=== PATIENT | female | born 1955 | race Caucasian/White ===

== ENCOUNTER → 2018-05-17 14:56 | Outpatient (CLI) | payer MEDICARE, OTHER, SELFPAY ==
--- NOTE | 2018-05-17 | DI.RAD.S_ITS ---
This blank DEXA report has been sent in error by the PACS system. The correct and complete report will be forthcoming in 1-2 days. Thank you for your patience and understanding. Dictated by: Victorina Jacobo MD, PhD on 05/17/2018 at 15:32 Approved by: Victorina Jacobo MD, PhD on 05/17/2018 at 15:32
== END ==
PROVIDERS: Visit Provider Family Medicine
DX: M85.852 Other specified disorders of bone density and structure, left thigh (principal); Z78.0 Asymptomatic menopausal state; E11.9 Type 2 diabetes mellitus without complications
CPT/HCPCS: 77080

== ENCOUNTER → 2023-03-16 14:56 | Outpatient (CLI) | payer MEDICARE, OTHER, SELFPAY ==
--- NOTE | 2023-03-16 | DI.RAD.S_ITS ---
PROCEDURE: XR WRIST LT MIN 3V INDICATIONS: Wrist pain after fall TECHNIQUE: 4 views of the wrist were acquired. COMPARISON: None. FINDINGS: Bones: 1st carpometacarpal joint space narrowing with marginal osteophyte. Normal bone mineralization. No evidence of fracture. Soft tissues: No suspicious soft tissue calcifications. IMPRESSION: Osteoarthritis. No fracture Approved by: Miquel Molina M.D. on 03/16/2023 at 19:28
--- NOTE | 2023-03-16 | DI.RAD.S_ITS ---
PROCEDURE: XR HAND LT 2V INDICATIONS: Wrist pain after fall TECHNIQUE: Three views of the hand acquired. COMPARISON: None. FINDINGS: Bones: No acute fractures or dislocations. Carpal bones are normally aligned. No suspicious bony lesions. Severe degenerative changes at the 1st carpometacarpal joint. Multifocal degenerative changes in the interphalangeal joints of the fingers, most notably at the third distal interphalangeal joint. Bones are osteopenic. Soft tissues: No suspicious soft tissue calcifications. IMPRESSION: 1. No acute osseous abnormality. If clinical suspicion and/or symptoms persist, additional imaging with repeat plain films, or advanced imaging (e.g. CT, MRI) may be helpful for further assessment. 2. Background osteoarthrosis, most notably at the 1st carpometacarpal joint and 3rd distal interphalangeal joint. Approved by: Garett Covington M.D. on 03/16/2023 at 21:20
== END ==
PROVIDERS: PCP Family Medicine; Referring Provider Family Medicine; Visit Provider Family Medicine
DX: M18.12 Unilateral primary osteoarthritis of first carpometacarpal joint, left hand (principal); M19.042 Primary osteoarthritis, left hand; M25.532 Pain in left wrist; M79.642 Pain in left hand
CPT/HCPCS: 73110; 73120

== ENCOUNTER → 2023-12-01 14:15 | Outpatient (CLI) | payer MEDICARE, OTHER, SELFPAY ==
--- NOTE | 2023-12-01 14:18 | DI.RAD.S_ITS ---
PROCEDURE: XR HIP W PEL IF DONE LT 2V INDICATIONS: HIP PAIN TECHNIQUE: AP pelvis with lateral view(s) of the left hip(s). COMPARISON: [facility], CR, XR PELVIS W BILATERAL HIPS 5VW, 02/27/2017, 17:17. FINDINGS: Bones: Severe left hip DJD, progressed compared to 2017. This is demonstrable by joint space narrowing acetabular roof sclerosis and osteophytosis. Moderate right hip DJD. No fractures or dislocations. Pelvic ring appears intact. No suspicious bony lesions. Lumbar spine degenerative changes. Soft tissues: The visualized bowel gas pattern is normal. No suspicious soft tissue calcifications. IMPRESSION: Severe left hip DJD. Moderate to severe right hip DJD. Dictated by: Greg England M.D. on 12/01/2023 at 21:58 Approved by: Greg England M.D. on 12/01/2023 at 22:00
--- NOTE | 2023-12-01 14:18 | DI.RAD.S_ITS ---
PROCEDURE: XR HAND LT MIN 3V INDICATIONS: HAND PAIN TECHNIQUE: 3 views of the hand(s) acquired. COMPARISON: [facility], CR, XR HAND LT 2V, 03/16/2023, 14:55. FINDINGS: Bones: No fractures or dislocations. Severe degenerative changes at the 1st CMC joint. Moderate to severe degenerative changes at the interphalangeal joint. Severe degenerative changes at the 3rd digit DIP joint. Carpal bones are normally aligned. No suspicious bony lesions. Soft tissues: No suspicious soft tissue calcifications. IMPRESSION: Severe degenerative changes at the 1st CMC joint. No interval change in the interval. Dictated by: Greg England M.D. on 12/01/2023 at 22:00 Approved by: Greg England M.D. on 12/01/2023 at 22:03
== END ==
PROVIDERS: PCP Family Medicine; Referring Provider Family Medicine; Visit Provider Family Medicine
DX: M16.0 Bilateral primary osteoarthritis of hip (principal); M25.552 Pain in left hip; M79.642 Pain in left hand
CPT/HCPCS: 73130; 73502